=== PATIENT | female | born 1990 | race American Indian/Alaskan Native ===

== ENCOUNTER 2017-10-30 13:27 | Emergency (ER) | payer SELFPAY ==
[2017-10-30 14:05] LABS: Basophils % (Auto) 0.9 % (0.0-1.8); Eosinophils # (Auto) 0.1 K/mm3 (0.0-0.4); Eosinophils % (Auto) 2.9 % (0.0-4.3); Hematocrit 39.7 % (30.3-42.9); Hemoglobin 13.1 gm/dl (10.1-14.3); Lymphocytes # (Auto) 1.4 K/mm3 (1.2-5.4); Lymphocytes % (Auto) 30.7 % (13.4-35.0); Mean Corpuscular HGB Conc 33 % (30-34); Mean Corpuscular Hemoglobin 30 pg (28-32); Mean Corpuscular Volume 90 fl (79-97); Monocytes # (Auto) 0.3 K/mm3 (0.0-0.8); Monocytes % (Auto) 6.6 % (0.0-7.3); Platelet Count 311 K/mm3 (140-440); Red Blood Count 4.41 M/mm3 (3.65-5.03); Red Cell Distribution Width 15.3 % (13.2-15.2)
[2017-10-30 14:26] LABS: Alanine Aminotransferase 13 units/L (7-56); Albumin 4.3 g/dL (3.9-5); BUN/Creatinine Ratio 10; Blood Urea Nitrogen 7 mg/dL (7-17); Calcium 8.6 mg/dL (8.4-10.2); Hemolysis Index 16
[2017-10-30 14:55] LABS: Bacteria,Urine 1+ /HPF (Negative); Bilirubin,Urine NEG (Negative); Blood,Urine NEG (Negative); Color,Urine Yellow (Yellow); Mucus,Urine FEW /HPF; Protein,Urine <15 mg/dL mg/dL (Negative); Urobilinogen,Urine < 2.0 mg/dL (<2.0)
[2017-10-30] MEDS ORDERED: TORADOL IV ONE (15:20)
[2017-10-30] MEDS ORDERED: NACL 0.9% 1000 ML 1,000 ML IV ONE (15:20)
[2017-10-30] MEDS ORDERED: PEPCID IV ONE (15:20)
[2017-10-30] MEDS ORDERED: ZOFRAN IV ONE ×2 (15:21→18:48)
--- NOTE | 2017-10-30 15:24 | Emergency Department Report ---
ED Abdominal Pain HPI - General Chief Complaint: Abdominal Pain Stated Complaint: NA/SOB/ABD PAIN Time Seen by Provider: 10/30/17 15:19 Source: patient Mode of arrival: Ambulatory Limitations: No Limitations - History of Present Illness Initial Comments: Pt reports onset of upper abdominal pain, n/v this AM. Denies diarrhea/ constipation. MD Complaint: abdominal pain -: Gradual, This morning Location: LUQ, RUQ, epigastric Severity: severe Severity scale (0 -10): 10 Quality: stabbing Consistency: constant Improves With: nothing Worsens With: nothing Associated Symptoms: nausea, vomiting. denies: diarrhea, fever, chills, constipation, dysuria - Related Data Previous Rx's Medication Instructions Recorded Last Taken Type Pantoprazole [Protonix] 40 mg PO QDAY #30 tablet 10/30/17 Unknown Rx Promethazine [Phenergan TAB] 25 mg PO Q6HR PRN #15 tab 10/30/17 Unknown Rx Sucralfate [Carafate] 1 gm PO ACHS #420 ml 10/30/17 Unknown Rx Allergies Allergy/AdvReac Type Severity Reaction Status Date / Time No Known Allergies Allergy Verified 10/23/15 18:32 ED Review of Systems ROS: Stated complaint: NA/SOB/ABD PAIN Other details as noted in HPI Comment: All other systems reviewed and negative Constitutional: denies: chills, fever Eyes: denies: eye pain, eye discharge, vision change ENT: denies: ear pain, throat pain Respiratory: denies: cough, shortness of breath, wheezing Cardiovascular: denies: chest pain, palpitations Endocrine: no symptoms reported Gastrointestinal: abdominal pain, nausea, vomiting. denies: diarrhea Genitourinary: denies: urgency, dysuria, discharge Musculoskeletal: denies: back pain, joint swelling, arthralgia Skin: denies: rash, lesions Neurological: denies: headache, weakness, paresthesias Psychiatric: denies: anxiety, depression Hematological/Lymphatic: denies: easy bleeding, easy bruising ED Past Medical Hx - Past Medical History Previous Medical History?: No - Surgical History Past Surgical History?: Yes Additional Surgical History: tonsillectomy - Social History Smoking Status: Current Every Day Smoker Substance Use Type: Alcohol - Medications Home Medications: Home Medications Medication Instructions Recorded Confirmed Last Taken Type Pantoprazole [Protonix] 40 mg PO QDAY #30 tablet 10/30/17 Unknown Rx Promethazine [Phenergan TAB] 25 mg PO Q6HR PRN #15 tab 10/30/17 Unknown Rx Sucralfate [Carafate] 1 gm PO ACHS #420 ml 10/30/17 Unknown Rx ED Physical Exam - General Limitations: No Limitations General appearance: alert, in distress - Head Head exam: Present: atraumatic, normocephalic - Eye Eye exam: Present: normal appearance - ENT ENT exam: Present: mucous membranes moist - Neck Neck exam: Present: normal inspection - Respiratory Respiratory exam: Present: normal lung sounds bilaterally. Absent: respiratory distress - Cardiovascular Cardiovascular Exam: Present: regular rate, normal rhythm. Absent: systolic murmur, diastolic murmur, rubs, gallop - GI/Abdominal GI/Abdominal exam: Present: soft, tenderness (upper abdomen), guarding, normal bowel sounds - Extremities Exam Extremities exam: Present: normal inspection - Back Exam Back exam: Present: normal inspection - Neurological Exam Neurological exam: Present: alert, oriented X3 - Psychiatric Psychiatric exam: Present: normal affect, normal mood - Skin Skin exam: Present: warm, dry, intact, normal color. Absent: rash ED Course Vital Signs 10/30/17 13:33 Temperature 98 F Pulse Rate 88 Respiratory 16 Rate Blood Pressure 102/66 O2 Sat by Pulse 98 Oximetry - Reevaluation(s) Reevaluation #1: 10/30/17 19:54 Abdomen now SNTND, tolerating PO. Pt stable for d/c. 10/30/17 19:54 ED Medical Decision Making - Lab Data Result diagrams: 10/30/17 13:44 10/30/17 13:44 - Radiology Data Radiology results: report reviewed US neg CT shows liver lesion, hemangioma vs vascular mass. - Medical Decision Making Pt presents with upper abdominal pain, nausea/vomiting. Sx improved with IV Toradol, Zofran, Morphine, IVF. US negative, CT shows liver lesion. Discussed with GI (Dr. Laboy) and patient will follow up as outpatient. - Differential Diagnosis gastritis, pancreatitis, cholecystitis Critical care attestation.: If time is entered above; I have spent that time in minutes in the direct care of this critically ill patient, excluding procedure time. ED Disposition Clinical Impression: Abdominal pain in female Gastritis Qualifiers: Gastritis type: unspecified gastritis Chronicity: acute Gastritis bleeding: without bleeding Qualified Code(s): K29.00 - Acute gastritis without bleeding Disposition: TO HOME OR SELFCARE Is pt being admited?: No Condition: Good Instructions: Abdominal Pain (ED), Gastritis (ED) Prescriptions: Pantoprazole [Protonix] 40 mg PO QDAY #30 tablet Promethazine [Phenergan TAB] 25 mg PO Q6HR PRN #15 tab PRN Reason: Nausea Sucralfate [Carafate] 1 gm PO ACHS #420 ml Referrals: BETTINA LABOY MD [Staff Physician] - 3-5 Days Time of Disposition: 19:57
--- NOTE | 2017-10-30 16:46 | Ultrasound Report ---
FINAL REPORT EXAM: US ABDOMEN LIMITED HISTORY: RUQ pain TECHNIQUE: Routine imaging was obtained of the right outer quadrant. FINDINGS: The gallbladder is normal in size and wall thickness. Stones are not seen. The common bile duct measures 3.1 mm in diameter which is normal. The liver is normal size and echotexture. The pancreas is normal size and echotexture. The right kidney is normal size contour and echotexture. There is no evidence of stones or hydronephrosis. Free fluid is not seen. IMPRESSION: Within normal limits.
[2017-10-30 17:43] LABS: HCG Qualitative,Urine Negative (Negative)
[2017-10-30] MEDS ORDERED: NACL ONE (17:48)
--- NOTE | 2017-10-30 18:39 | Cat Scan Report ---
FINAL REPORT PROCEDURE: CT ABDOMEN PELVIS W CON TECHNIQUE: Computerized axial tomography of the abdomen and pelvis was performed after the IV injection of iodinated nonionic contrast. HISTORY: abdominal pain COMPARISON: No prior studies are available for comparison. FINDINGS: Study is limited by beam hardening artifact related to the patient's large body habitus and thin CT slices used for this exam. Lower Lung singer: No focal abnormality seen. Upper Abdomen: There is an abnormal oval area of enhancement seen in the right lobe of the liver medially/anteriorly measuring 2.7 x 1.7 centimeters seen on image 31 series 2. The liver is otherwise unremarkable. The gallbladder showed no abnormalities. The adrenal glands and the pancreas are unremarkable. The spleen does not appear to be enlarged. Kidneys, Ureters and Urinary bladder: Small renal cortical cysts appears to be present in the lower 3rd of the left kidney posteriorly. The kidneys, the ureters and urinary bladder otherwise are unremarkable. Retroperitoneum: Abdominal aorta appears normal. Nonspecific subcentimeter lymph nodes are seen in the retroperitoneum. No pathologically enlarged lymph nodes are identified. Bowel: No focal bowel loop abnormalities are identified. No evidence of bowel obstruction. There is no free intraperitoneal gas. There is a small amount of nonspecific free fluid in the patient's cul-de-sac. Normal-appearing appendix is seen in the right lower quadrant. Reproductive organs: Uterus is slightly deviated to the right of midline. Small nonspecific cystic change seen in the right and left ovaries. Other: No acute bony abnormalities are visualized. IMPRESSION: Abnormal oval area of enhancement right lobe of the liver medially anteriorly as described. This finding could represent a hepatic hemangioma although not confirmed with this exam. Other vascular lesions including hypervascular masses cannot be excluded. Consider follow-up dynamic contrast-enhanced scan to evaluate the enhancement pattern. Renal cortical cyst visualized left kidney. Minimal nonspecific free fluid seen in the cul-de-sac. No other abnormalities are identified.
[2017-10-30] MEDS ORDERED: MORPHINE IV ONE (18:48)
[2017-10-30] MEDS ORDERED: PROTONIX PO ONE (18:48)
[2017-10-30 21:29] VITALS: BP 110/67
== END 2017-10-30 20:36 | disposition home or self-care (01) ==
LOC: ED 13:27
DX: K29.00 Acute gastritis without bleeding (principal); F17.200 Nicotine dependence, unspecified, uncomplicated; Z90.89 Acquired absence of other organs
CPT/HCPCS: 36415; 74177; 76705; 80053; 81001; 81025; 83690; 85025; 93005; 93010; 96361; 96374; 96375; 96376; 99284; J1885; J2270; J2405; J7030; Q9967

== ENCOUNTER 2018-05-05 12:25 | Emergency (ER) | payer SELFPAY ==
[2018-05-05 12:41] VITALS: BP 115/69
[2018-05-05] MEDS ORDERED: NACL 0.9% 1000 ML 1,000 ML IV ONE (12:56)
[2018-05-05] MEDS ORDERED: ZOFRAN IV ONE (12:56)
--- NOTE | 2018-05-05 13:03 | Emergency Department Report ---
ED Abdominal Pain HPI - General Chief Complaint: Nausea/Vomiting/Diarrhea Stated Complaint: NAUSEA/ DIZZINESS/VOMIT Time Seen by Provider: 05/05/18 12:53 Source: patient Mode of arrival: Ambulatory Limitations: No Limitations - History of Present Illness Initial Comments: CC: "I have to be honest. I drank too much last night. I need something for nausea. I need fluids." HPI: Thaddeus is a healthy 27 yo female who presents with nausea and vomiting. NO discrete stomach pain. Symptoms began early this morning. She drank copious amounts of alcohol last night. She is also worried because of a "spot on my liver". She was told about the liver lesion during her last visit. MD Complaint: abdominal pain -: Gradual Location: diffuse Severity: mild Quality: dull Improves With: nothing Worsens With: nothing Context: other ("drank too much last night") Associated Symptoms: nausea, vomiting - Related Data Previous Rx's Medication Instructions Recorded Last Taken Type Pantoprazole [Protonix] 40 mg PO QDAY #30 tablet 10/30/17 Unknown Rx Promethazine [Phenergan TAB] 25 mg PO Q6HR PRN #15 tab 10/30/17 Unknown Rx Sucralfate [Carafate] 1 gm PO ACHS #420 ml 10/30/17 Unknown Rx Famotidine 20 mg PO BID #60 tablet 05/05/18 Unknown Rx Promethazine [Phenergan TAB] 25 mg PO Q6HR PRN #10 tab 05/05/18 Unknown Rx Allergies Allergy/AdvReac Type Severity Reaction Status Date / Time No Known Allergies Allergy Verified 10/23/15 18:32 ED Review of Systems ROS: Stated complaint: NAUSEA/ DIZZINESS/VOMIT Other details as noted in HPI Comment: All other systems reviewed and negative Constitutional: malaise. denies: fever Cardiovascular: denies: chest pain ED Past Medical Hx - Past Medical History Previous Medical History?: Yes Additional medical history: gastritis - Surgical History Past Surgical History?: Yes Additional Surgical History: tonsillectomy - Social History Smoking Status: Never Smoker Substance Use Type: Alcohol - Medications Home Medications: Home Medications Medication Instructions Recorded Confirmed Last Taken Type Pantoprazole [Protonix] 40 mg PO QDAY #30 tablet 10/30/17 Unknown Rx Promethazine [Phenergan TAB] 25 mg PO Q6HR PRN #15 tab 10/30/17 Unknown Rx Sucralfate [Carafate] 1 gm PO ACHS #420 ml 10/30/17 Unknown Rx Famotidine 20 mg PO BID #60 tablet 05/05/18 Unknown Rx Promethazine [Phenergan TAB] 25 mg PO Q6HR PRN #10 tab 05/05/18 Unknown Rx ED Physical Exam - General Limitations: No Limitations General appearance: alert, in no apparent distress - Head Head exam: Present: atraumatic, normocephalic - Eye Eye exam: Present: normal appearance - ENT ENT exam: Present: mucous membranes moist - Neck Neck exam: Present: normal inspection. Absent: tenderness, meningismus - Respiratory Respiratory exam: Present: normal lung sounds bilaterally. Absent: respiratory distress, wheezes, rales, rhonchi - Cardiovascular Cardiovascular Exam: Present: regular rate, normal rhythm, normal heart sounds. Absent: bradycardia, tachycardia, systolic murmur, diastolic murmur, rubs, gallop - GI/Abdominal GI/Abdominal exam: Present: soft, normal bowel sounds. Absent: distended, tenderness, guarding, rebound - Extremities Exam Extremities exam: Present: normal inspection - Back Exam Back exam: Present: normal inspection - Neurological Exam Neurological exam: Present: alert, oriented X3 - Psychiatric Psychiatric exam: Present: normal affect, normal mood - Skin Skin exam: Present: warm, dry, intact, normal color. Absent: rash ED Course Vital Signs 05/05/18 12:38 Temperature 98.6 F Pulse Rate 71 Respiratory 16 Rate Blood Pressure 115/69 O2 Sat by Pulse 99 Oximetry ED Medical Decision Making - Medical Decision Making Thaddeus presents with n/v, mild stomach upset after imbibing alcohol last night. No s/s of peritonitis on exam. Patient appears well. Given IVF and antiemetics in the ED. I reviewed previous imaging CT scan obtained in October. Likely has liver hemangioma. No other abdominal abnormalities on CT scan at that time. Due to age age, primary liver cancer is highly unlikely. Strongly encouraged follow up with a primary care physician. Thaddeus has history of gastritis. After receiving treatment in the ED, she has localized mild left upper quadrant pain. I strongly suspect the patient has alcohol-induced gastritis. She is currently from her . is supportive and at the bedside. However they are living in 2 different locations. Thaddeus admitted to drinking alcohol to deal with the stress of the separation. Her feels that she drinks alcohol entirely too often. Since the separation she has been drinking alcohol almost daily. I explained that drinking as a coping mechanism will lead to harmful effects on her health as well as toward addiction. rx: famotidine, promethazine Critical care attestation.: If time is entered above; I have spent that time in minutes in the direct care of this critically ill patient, excluding procedure time. ED Disposition Clinical Impression: Vomiting, Liver mass, right lobe, Hemangioma of liver, Gastritis Disposition: TO HOME OR SELFCARE Is pt being admited?: No Does the pt Need Aspirin: No Condition: Stable Instructions: Acute Nausea and Vomiting (ED) Additional Instructions: The mass on your liver is likely a hemangioma which is a benign tumor of blood vessels which is not harmful to your health. Prescriptions: Famotidine 20 mg PO BID #60 tablet Promethazine [Phenergan TAB] 25 mg PO Q6HR PRN #10 tab PRN Reason: Nausea Referrals: [facility] [Outside] - 3-5 Days
[2018-05-05] MEDS ORDERED: MORPHINE IV ONE (13:39)
[2018-05-05] MEDS ORDERED: TORADOL IV ONE (13:42)
[2018-05-05] MEDS ORDERED: ALUM-MAG HYDROX-SIMETH 200-200-20MG/5ML PO ONE (14:03)
== END 2018-05-05 15:04 | disposition home or self-care (01) ==
LOC: ED 12:25
DX: K29.70 Gastritis, unspecified, without bleeding (principal); D18.03 Hemangioma of intra-abdominal structures; R16.0 Hepatomegaly, not elsewhere classified
CPT/HCPCS: 96361; 96374; 96375; 99282; J1885; J2405; J7030